=== PATIENT | male | born 1975 | race Caucasian/White ===

== ENCOUNTER 2020-04-07 05:19 | Emergency (ER) | payer OTHER ==
--- OUTSIDE RECORDS SUMMARY | 2020-04-07 05:41 | XMS ---
:1975 Author Organization [facility] Care Team Providers Name Role Phone EMMETT GUERRA MD Unavailable EMMETT GUERRA MD Unavailable EMMETT GUERRA MD Unavailable SHANNON GUERRA MDY Unavailable DO Demetrio GEMINI Unavailable DO Demetrio GEMINI Unavailable CHARLEE SANDERS MD Unavailable CHARLEE SANDERS MD Unavailable VAISHALI LAYTON MD Unavailable VAISHALI LAYTON MD Unavailable VAISHALI LAYTON MD Unavailable IVONNE CASTANON Unavailable AGCRISTY MATAYNE Unavailable READRIAN JENKINS LISSA Unavailable RE JENKINS LISSA Unavailable ALEISHA UP MD Unavailable Unavailable UP, ALEISHA MD Unavailable Unavailable UP, ALEISHA MD Unavailable Unavailable UP, ALEISHA MD Unavailable Unavailable UP, ALEISHA MD Unavailable Unavailable UP, ALEISHA MD Unavailable Unavailable LISSA BLAKE Unavailable Unavailable Re-disclosure Warning The records that you are about to access may contain information from federally- assisted alcohol or drug abuse programs. If such information is present, then the following federally mandated warning applies: This information has been disclosed to you from records protected by federal confidentiality rules (42 CFR part 2). The federal rules prohibit you from making any further disclosure of this information unless further disclosure is expressly permitted by the written consent of the person to whom it pertains or as otherwise permitted by 42 CFR part 2. A general authorization for the release of medical or other information is NOT sufficient for this purpose. The Federal rules restrict any use of the information to criminally investigate or prosecute any alcohol or drug abuse patient.The records that you are about to access may contain highly sensitive health information, the redisclosure of which is protected by Article 27-F of the [facility] Public Health law. If you continue you may haveaccess to information: Regarding HIV / AIDS; Provided by facilities licensed or operated by the [facility] Office of Mental Health; or Provided by the [facility] Office for People With Developmental Disabilities. If such information is present, then the following [facility] mandated warning applies: This information has been disclosed to you from confidential records which are protected by state law. State law prohibits you from making any further disclosure of this information without the specific written consent of the person to whom it pertains, or as otherwise permitted by law. Any unauthorized further disclosure in violation of state law may result in a fine or alf sentence or both. A general authorization for the release of medical or other information is NOT sufficient authorization for further disclosure. Allergies and Adverse Reactions Type Description Substance Reaction Status Data Source(s ) Allergy to No Known Allergies No known GREENW AY ([facility] substance allergies [facility] ([facility]) [facility] ) Allergy to No Known Allergies No known GREENW AY ([facility] substance allergies [facility] ([facility]) [facility] ) Allergy to No Known Allergies No known GREENW AY ([facility] substance allergies [facility] ([facility]) [facility] ) Allergy to No Known Allergies No known GREENW AY ([facility] substance allergies 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</td><td>Yo 11:59:00 nkers [facility]</td><td >07/12/2019</t d><td></td> Outpatient<td Attender: Jessee 06/22/20 DENISA (M ount ID="encounterT [place] [address] [facility] [place] ID1">*OUTREACH AM [facility] Health [facility] ter) *</td><td>GIFT 06/22/20 Y RE 19 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</td><td>Yo 11:59:00 nkers [facility]</td><td >06/22/2019</t d><td></td> Outpatient Attender: Radha 06/21/[address] RE 03:11:00 GIFTYAdmitter PM EST : LISSA RE GIFTYReferrer : LISSA RE LISSA Outpatient<td Attender: Jessee 06/21/20 DENISA (M ount ID="encounterT [place] [address] [facility] [place] [facility] 02:30[facility]00 [facility]">E[facility]</td>< EST - Health Barbara ter) td>CHARLEE 06/21/20 MARILYN Stewart MD</td><td>Yon 01:21:32 [facility]</td><td >06/21/2019</t d><td></td> Outpatient<td Attender: Jessee 06/21/20 Chest DENISA (M ount ID="encounterT [facility] 19 PainBronchitisChest V cassie ypeDescription [facility] Health Center 01:30:00 PainBronchitisCh [facility] ID3">OFFICE PM EST - PainBronchitis Health nter) VISIT</td><td> 06/21/[address]</td><td>Yo 02:52:34 nkers PM [facility] Center</td><td >06/21/2019</t d><td><content ID="encounterD iagnosisID3-0" >Bronchitis</c ontent>, <content ID="encounterD iagnosisID3-1" >Chest Pain</content> </td> Chest Pain Bronchitis Chest Pain Bronchitis Chest Pain Bronchitis Outpatient<td Attender: Jessee 04/19/2019 DENISA ID="encounterTypeDescriptionID4">WALKINS</td><td>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 Center 019 Health 03:37:29 PM Center) EDT Outpatient<td ID="encounterTypeDescriptionID5">OFFICE Attender: Jessee 02/17/2017 DENISA VISIT</td><td>[facility]</td><td>[facility] 06:45:00 PM ([facility] EDT - [place]</td><td>02/17/2017</td><td></td> 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 Center 017 Health 07:20:47 PM Center) EDT Outpatient<td ID="encounterTypeDescriptionID6">OFFICE Attender: Jessee 01/13/2017 DENISA VISIT</td><td>VAISHALI LAYTON MD</td><td>[facility] 09:15:00 AM ([facility]</td><td>01/13/2017</td><td></td> CALIN SUAREZ [facility] EDT [facility] 01/13/2017 Health 10:43:25 AM Center) EDT Outpatient<td ID="encounterTypeDescriptionID7">[Patient Attender: 12/03/2016 DENISA Encounter]</td><td>EMMETT GUERRA MD</td><td> EMMETT 02:5 1:00 PM ([place] </td><td>12/03/2016</td><td></td> MARI SUAREZ EDT - [facility] 12/03/2016 Health 11:59:00 PM Center) EDT Outpatient<td ID="encounterTypeDescriptionID8">OFFICE Attender: Jessee 12/02/2016 DENISA VISIT</td><td>EMMETT GUERRA MD</td><td>General acute hospital 09:45:00 AM ([facility]</td><td>12/02/2016</td><td></td> MARI SUAREZ [facility] EDT [facility] 12/02/2016 Health 10:59:01 AM Center) EDT Outpatient<td ID="encounterTypeDescriptionID9">[Patient Attender: 11/25/2016 DENISA Encounter]</td><td>VAISHALI LAYTON MD</td><td> VAISHALI 04: 51:00 PM ([place] </td><td>11/25/2016</td><td></td> CALIN SUAREZ EDT - Neighborhood 11/25/2016 Health 11:59:00 PM Center) EDT Outpatient<td ID="[id number]">[facility] 11/18/2016 [place] EKG</td><td> </td><td>[facility] 03:30:00 PM ([facility] EDT [facility]</td><td>11/18/2016</td><td></td> Center 05/04/2 017 Health 11:59:00 PM Center) EDT Outpatient<td Attender: Jessee 11/18/2016 Shirin [place] ID="[id number]">COMPLETE PHYSICAL VAISHALI [facility] 02:00:00 PM a ([place] EXAM</td><td>VAISHALI LAYTON MD</td><td>[facility] CALIN SUAREZ a [facility] EDT - s [facility]</td><td>11/18/2016</td><td><content Center 11/18/2016 t Health ID="[id number]">Questionnaires Phq-9 11:59:00 PM r [place]) Quick Depression Assessment Panel</content>, <content EDT i ID="[id number]">Atypical Chest t Pain</content>, <content i ID="efsgsbcteFcvvmqqgwNO69-4">Routine History and s Physical Adult (18 - 64 Yrs)</content>, <content S ID="ghxcmlthnVrucracruWQ14-5">Scrotum c Disorders</content>, <content r ID="oakxouekzAvsdmtqeiHV52-6">Gastritis</content></td> o t u m D i s o r d e r s R o u t i n e H i s t o r y a n d P h y s i c a l A d u l t ( 1 8 - 6 4 Y r s ) A t y p i c a l C h e s t P a i n Q u e s t i o n n a i r e s P h q - 9 Q u i c k D e p r e s s i o n A s s e s s m e n t P a n e l G a s t r i t i s S c r o t u m D i s o r d e r s R o u t i n e H i s t o r y a n d P h y s i c a l A d u l t ( 1 8 - 6 4 Y r s ) A t y p i c a l C h e s t P a i n Q u e s t i o n n a i r e s P h q - 9 Q u i c k D e p r e s s i o n A s s e s s m e n t P a n e l G a s t r i t i s S c r o t u m D i s o r d e r s R o u t i n e H i s t o r y a n d P h y s i c a l A d u l t ( 1 8 - 6 4 Y r s ) A t y p i c a l C h e s t P a i n Q u e s t i o n n a i r e s P h q - 9 Q u i c k D e p r e s s i o n A s s e s s m e n t P a n e l G a s t r i t i s S c r o t u m D i s o r d e r s R o u t i n e H i s t o r y a n d P h y s i c a l A d u l t ( 1 8 - 6 4 Y r s ) A t y p i c a l C h e s t P a i n Q u e s t i o n n a i r e s P h q - 9 Q u i c k D e p r e s s i o n A s s e s s m e n t P a n e l Gastritis Scrotum Disorders Routine History and Physical Adult (18 - 64 Yrs) Atypical Chest Pain Questionnaires Phq-9 Quick Depression As sessment Panel Gastritis Scrotum Disorders Routine History and Physical Adult (18 - 64 Yrs) Atypical Chest Pain Questionnaires Phq-9 Quick Depression As sessment Panel Gastritis Scrotum Disorders Routine History and Physical Adult (18 - 64 Yrs) Atypical Chest Pain Questionnaires Phq-9 Quick Depression As sessment Panel Gastritis Scrotum Disorders Routine History and Physical Adult (18 - 64 Yrs) Atypical Chest Pain Questionnaires Phq-9 Quick Depression As sessment Panel Outpatient<td Attender: Jessee 11/13/2015 [place] ID="[id number]">*No [facility] 11:09:00 AM ([place] Show*</td><[facility] </td><td>[facility] 11/13/2015 [facility]</td><td>11/13/2015</td><td></td> 11:59:0 0 PM Center) EDT Outpatient<td [facility] 11/24/2011 DENISA ID="[id number]">DEEPCAMI Brennan 02:45: 00 PM (Ai Hi</td><[facility]> [facility] </td><td>[facility] 11/24/2011 [facility] 11:59:00 PM Center) Center</td><td>11/24/2011</td><td></td> EDT Outpatient<td Attender: 11/24/2011 DENISA ID="[id number]">[Latrice SINGLETARY 12:23: 00 PM ([place] nt Encounter]</td><td>Demetrio Calvin DO EDT [facility] DO</td><td> 11/24/2011 [facility] </td><td>11/24/2011</td><td></td> 11:59:00 PM Center) EDT Outpatient<td Attender: Jessee 11/24/2011 DENISA ID="[id number]">[facility] 12:15: 00 PM (Ai [place] </td><td>EMMETT GUERRA MD</td><td>[facility] 11/24/2011 Health Center</td><td>11/24/2011</td><td></td> 01:42:5 6 PM Center) EDT Outpatient<td Attender: Jessee 04/15/2011 DENISA ID="[id number]">Follow GEMINI Deleon 01:30: 00 PM ([place] </td><td>Demetrio Calvin DO [facility] EDT [facility] DO</td><td>[facility] 04/15/2011 Health Center</td><td>04/15/2011</td><td></td> 11:59:0 0 PM Center) EDT Medications Medication Brand Start Product Dose Route Administrative Pharmacy St atus Indications Reaction Description Data Name Date Form Instructions Instructions Source(s) Amoxicillin Amoxic 12/05/ UNIT 1 complet Amoxic illin- DENISA 875 MG / illin- 2019 ed Pot ([place] Clavulanate Pot 12:00: Clavulanate Mika 125 MG Oral Clavul 00 AM Neigh [place] Tablet anate EST od Health Amoxicillin 875-12 Center ) -Pot 5MG Clavulanate Oral 875-125MG Tablet Oral Tablet Ventolin Ventol 06/21/ INHALATI active Ventol in HFA DENISA HFA 108 (90 in HFA 2019 ON ([place] Base)MCG/AC 108 12:00: DOSING Nikolay on T (90 00 AM UNIT [place]ighbor[place] Inhalation Base)M EST od Heal th Aerosol CG/ACT Center) Solution Inhala tion Aeroso l Soluti on Singulair Singul 06/21/ UNIT 1 active Singulair DENISA 10MG Oral air 2018 ([place] Tablet 10MG 12:00: Mika Oral 00 AM [place]ighbor[place] Tablet EST od Health Center) Omeprazole Omepra 02/17/ UNIT 1 complet Omepraz ole DENISA 20 MG zole 2016 ed ([place] Delayed 20MG 12:00: Mika Release Oral 00 AM [place]ighbor[place] Oral Tablet Tablet EDT od Hea lt Omeprazole [place] [facility]) 20MG Oral d Tablet Releas Delayed e Release Omeprazole Omepra 11/19/ UNIT 1 suspend Omepraz ole DENISA 20 MG zole 2016 ed ([place] Delayed 20 MG 12:00: Mika Release Capsul 00 AM Neighbor[place] o Oral e EDT od Health Capsule [place] [facility]) Omeprazole d 20 MG Releas Capsule e Delayed Release Insurance Providers Payer name Policy type / Policy ID Covered Covered green party's Policy Plan Coverage type green party ID relationship to Dan Information dan DOYLE [id number] ESSENTIAL PLAN 3 4 [place] Care Individual 0 Self 0 [place] Policy [place] Individual 0 Self 0 [place] Policy O DOYLE O [id number] 01 [id number] ESSENTIALS-CO MMERCIAL [place] Care Individual 0 Self 0 [place] Policy [place] Care Individual 0 Self 0 [place] Policy Juventino Vision [id number] S [id number] Essential Plan 3 4 Dental [id number] S [id number] DentaQuest EP 4 Doyle Care [id number] S [id number] HMO EP 4 [place] Care [id number] S [id number] [place] [id number] S [id number] 400 Family Planning MKD & EP 3 & 4 Only Juventino Vision [id number] S [id number] MKD Dental [id number] S [id number] 400 Dentaquest MKD Medicaid [id number] S [id number] Regular Clinic Visit [place] Care [id number] S [id number] [place] Medicaid Problems, Conditions, and Diagnoses Code Display Name Description Problem Type Effective Data Sour ce(s) Dates 530.81 Gerd Gerd Problem 04/19/2017 [place] (Moun t 12:00:00 AM [facility]) 530.81 Gerd Gerd Problem 04/19/2017 [place] (Moun t 12:00:00 AM [facility]) 530.81 Gerd Gerd Problem 04/19/2017 [place] (Moun t 12:00:00 AM [facility]) 530.81 Gerd Gerd Problem 04/19/2017 [place] (Moun t 12:00:00 AM [facility]) [id number] Disorder of scrotum Scrotum Problem 11/18/2016 [facility] ([place] (disorder) Disorders 12:00:00 AM [facility]) 74739129 Disorder of scrotum Scrotum Problem 11/18/2016 [facility] ([place] (disorder) Disorders 12:00:00 AM [facility]) 89376514 Disorder of scrotum Scrotum Problem 11/18/2016 [facility] ([place] (disorder) Disorders 12:00:00 AM [facility]) 00719648 Disorder of scrotum Scrotum Problem 11/18/2016 [facility] ([place] (disorder) Disorders 12:00:00 AM [facility]) 919858251 Shoulder strain Shoulder Strain Problem 11/24/2011 MACK ADORNO ([place] (disorder) 12:00:00 AM [facility]) [id number] Shoulder strain Shoulder Strain Problem 11/24/2011 [place] [place] ([place] (disorder) 12:00:00 AM [facility]) [id number] Shoulder strain Shoulder Strain Problem 11/24/2011 MACK ADORNO ([facility] (disorder) 12:00:00 AM [facility]) [id number] Shoulder strain Shoulder Strain Problem 11/24/2011 MACK ADORNO ([facility] (disorder) 12:00:00 AM [facility]) J40 Bronchitis, not BRONCHITIS, NOT Diagnosis 06/21/2019 Prashant Mendoza specified as acute SPECIFIED 03:11:00 PM [facility] or chronic ACUTE OR EST CHRONIC R82.79 Other abnormal Other abnormal Diagnosis 09/19/2018 [facility] AY ([facility] findings on findings on 07:37:28 PM [place] microbiological microbiolog [facility] examination of examination of [facility]) urine urine K29.70 Gastritis, Gastritis, Diagnosis 09/19/2018 [place] (Moun t unspecified, unspecified, 07:37:28 PM [place] without bleeding without [facility] bleeding [facility]) R07.9 Chest pain, Chest pain, Diagnosis 09/19/2018 [place] (Mo unt unspecified unspecified 07:37:[address] [facility]) Surgeries/Procedures Procedure Description Date Indications Data Source(s) EKG EKG 06/21/2019 [place] ([facility] 12:00:00 AM [facility]) VITALS ONLY TAKEN VITALS ONLY TAKEN BY 04/19/2019 JOSÉ MIGUEL BORJA ([facility] BY NSG OR BOOM SUPERVISOR NSG OR BOOM SUPERVISOR 12:00:00 AM [facility]) Advance healthcare Advance healthcare 02/17/2017 LUANNE CASTREJON ([facility] directive not on directive not on 12:00:00 AM [facility]) No recent change in No recent change in 01/13/2017 Shirin HUNTER ([facility] medical history medical history 12:00:00 [facility]) No past medical No past medical 12/02/2016 [place] ([facility] history reported history reported 12:00:00 AM [facility]) History of No History of No 12/02/2016 [place] ([place] nt carotid bruits carotid bruits 12:00:00 AM [facility]) History of Eyes: History of Eyes: 12/02/2016 SHARMIN Y ([facility] normal normal 12:00:[address] [facility]) No history of No history of 12/02/2016 DENISA ([place] surgery surgery 12:00:[address] [facility]) Results ID Date Data Source [id number] 07/12/2019 09:47:17 AM EST GREENWA Y ([place] [id number] [facility]) Name Value Range Interpretation Description Data Source(s ) Supporting Code Document(s ) No Results No Results No Results DENISA ([facility] Recorded For [facility]) ID Date Data Source [id number] 06/22/2019 08:52:39 AM EST GREENWA Y ([place] [id number] [facility]) Name Value Range Interpretation Description Data Source(s ) Supporting Code Document(s ) No Results No Results No Results DENISA ([facility] Recorded For [facility]) ID Date Data Source [id number] 06/21/2019 02:26:05 PM EST GREENWA Y ([place] [id number] [facility]) Name Value Range Interpretation Description Data Source(s ) Supporting Code Document(s ) No Results No Results No Results DENISA ([facility] Recorded For [facility]) ID Date Data Source [id number] 04/19/2019 04:07:52 PM EDT GREENWA Y ([place] [id number] [facility]) Name Value Range Interpretation Description Data Source(s ) Supporting Code Document(s ) No Results No Results No Results DENISA ([facility] Recorded For [facility]) Procedure Social History Code Duration Value Status Description Data Source(s ) Smoking 12/02/2016 Never smoked completed Never smoked DENISA ( [facility] 11:24:35 AM tobacco (finding) tobacco (finding) [facility]) Assertion Occupation completed Occupation DENISA ([place] history (finding) history (finding) [facility]) Assertion Finding relating completed Finding relating GR EENWAY ([facility] to drug misuse to drug misuse [place] behavior behavior Neighborhood (finding) (finding) Health [place]) Assertion Physical handicap completed Physical handicap DENISA ([facility] (finding) (finding) [facility]) Assertion Caffeine user completed Caffeine user DENISA ([facility] (finding) (finding) [facility]) Assertion sexual history completed DENISA ( [facility]) Assertion Finding of completed Finding of DENISA ([place] functional functional [place] performance and performance and [facility] activity activity [facility]) (finding) (finding) Assertion social history completed DENISA ( [facility]) Assertion Finding of completed Finding of DENISA ([place] activity of daily activity of daily Mika living (finding) living (finding) [facility]) Assertion Exercise history completed Exercise history GR EENWAY ([facility] finding (finding) finding (finding) [facility]) Assertion Current drinker completed Current drinker MACK ADORNO ([facility] of alcohol of alcohol [place] (finding) (finding) [facility]) Smoking Unknown if ever completed Unknown if ever Prashant Mendoza smoked smoked Medical Center Vital Signs ID Date Data Source UNK Name Value Range Interpretation Code Description Data Source(s) PhenX - pain, 0 0 DENISA ([facility] abdominal - type [facility]) protocol Follow up and he still have cough Body surface area Derived from 1.94 m2 1.94 m2 [place] ([facility]) Follow up and he still have cough Body mass index (BMI) 25.4 kg/m2 25.4 kg/m2 GRE ENWAY ([place] [Ratio] [facility] Follow up and he still have cough Body weight 172 [lb_av] 172 [lb_av] DENISA ([facility]) Follow up and he still have cough Body height 69 [in_us] 69 [in_us] DENISA ([place] [facility]) Follow up and he still have cough Body temperature 98.1 [degF] 98.1 [degF] [facility] ([facility]) Follow up and he still have cough Heart rate 59 /min 59 /min DENISA (Moun t [facility]) Follow up and he still have cough Diastolic blood pressure 87 mm[Hg] 87 mm[Hg] DENISA ([facility]) Follow up and he still have cough Systolic blood pressure 130 mm[Hg] 130 mm[Hg] [facility]) Follow up and he still have cough PhenX - pain, abdominal - type and 5 5 [place] ([facility] protocol [facility]) Pt is here for regular check and also 3 month with chest pain, and cough for same time. Body surface area Derived from 1.95 m2 1.95 m2 [place] ([facility]) Pt is here for regular check and also 3 month with chest pain, and cough for same time. Body mass index (BMI) 25.8 kg/m2 25.8 kg/m2 GRE ENWAY ([place] [Ratio[facility] Pt is here for regular check and also 3 month with chest pain, and cough for same time. Body weight 175 [lb_av] 175 [lb_av] [place] ( ount [facility]) Pt is here for regular check and also 3 month with chest pain, and cough for same time. Body height 69 [in_us] 69 [in_us] [place] ([place] [facility]) Pt is here for regular check and also 3 month with chest pain, and cough for same time. Body temperature 97.5 [degF] 97.5 [degF] [facility] ([facility]) Pt is here for regular check and also 3 month with chest pain, and cough for same time. Heart rate 74 /min 74 /min [place] ([facility]) Pt is here for regular check and also 3 month with chest pain, and cough for same time. Diastolic blood pressure 77 mm[Hg] 77 mm[Hg] [place] ([facility]) Pt is here for regular check and also 3 month with chest pain, and cough for same time. Systolic blood pressure 120 mm[Hg] 120 mm[Hg] [facility] Pt is here for regular check and also 3 month with chest pain, and cough for same time. Inhaled oxygen concentration 21 % 21 % [place] ([facility]) pt , is here for follow up , complaint a bout cought and short breath X2 weeks Inhaled oxygen flow rate 0 L/min 0 L/min [place] ([facility]) pt , is here for follow up , complaint a bout cought and short breath X2 weeks Oxygen saturation in Arterial blood 97 % 97 % DENISA ([facility] by Pulse oximetry [facility]) pt , is here for follow up , complaint a bout cought and short breath X2 weeks PhenX - pain, abdominal - type and 8 8 DENISA ([facility] intensity protocol [facility]) pt , is here for follow up , complaint a bout cought and short breath X2 weeks Body surface area Derived from 1.92 m2 1.92 m2 DENISA ([facility]) pt , is here for follow up , complaint a bout cought and short breath X2 weeks Body mass index (BMI) 24.7 kg/m2 24.7 kg/m2 LUANNE CASTREJON ([place] [facility] , is here for follow up , complaint a bout cought and short breath X2 weeks Body weight 167.6 [lb_av] 167.6 [lb_av] SHARMIN Y ([facility]) pt , is here for follow up , complaint a bout cought and short breath X2 weeks Body height 69 [in_us] 69 [in_us] DENISA ([facility]) pt , is here for follow up , complaint a bout cought and short breath X2 weeks Body temperature 98.2 [degF] 98.2 [degF] [facility] ([facility]) pt , is here for follow up , complaint a bout cought and short breath X2 weeks Respiratory rate 18 /min 18 /min DENISA ([facility]) pt , is here for follow up , complaint a bout cought and short breath X2 weeks Heart rate rhythm 1 1 IGORVT Y ([facility]) pt , is here for follow up , complaint a bout cought and short breath X2 weeks Heart rate 71 /min 71 /min [place] ([facility]) pt , is here for follow up , complaint a bout cought and short breath X2 weeks Diastolic blood pressure 78 mm[Hg] 78 mm[Hg] DENISA ([facility]) pt , is here for follow up , complaint a bout cought and short breath X2 weeks Systolic blood pressure 120 mm[Hg] 120 mm[Hg] G REEKYREE ([facility]) pt , is here for follow up , complaint a bout cought and short breath X2 weeks Patient Treatment Plan of Care Planned Activity Planned Date Details Description Data Source (s) Amoxicillin 875 MG / 06/21/2019 12:00:00 DENISA ([place] Clavulanate 125 MG Oral AM EST [facility]) Singulair 10MG Oral 06/21/2019 12:00:00 G REENDONAVON ([place] Tablet AM EST [facility]) Ventolin HFA 108 (90 06/21/2019 12:00:00 DENISA ([facility])MCG/ACT Inhalation AM EST [facility] Aerosol Solution [place]) Omeprazole 20 MG 02/17/2017 12:00:00 MACK ADORNO ([place] Delayed Release Oral AM EDT [facility] Tablet [place]) Omeprazole 20 MG 11/19/2016 12:00:00 MACK ADORNO ([place] Delayed Release Oral AM EDT [facility] Capsule [place])
[2020-04-07 06:18] VITALS: BP 146/97; PULSE 88; TEMP 98.1; BMI 21.4
--- NOTE | 2020-04-07 06:24 | PDOC ---
History of Present Illness - General Chief Complaint: Bite Stated Complaint: NUMBNESS TO HAND Time Seen by Provider: 04/07/20 06:24 History Source: Patient Exam Limitations: No Limitations - History of Present Illness Initial Comments: 04/07/20 06:33 bee sting to left ring finger while taking out trash yesterday progressive swelling of finger; gold ring now stuck. Increasing pain of finger. no f/c, cp/sob, n/v/d. No numbness, tingling, weakness. NKDA Past History - Medical History Allergies/Adverse Reactions: Allergies Allergy/AdvReac Type Severity Reaction Status Date / Time No Known Allergies Allergy Verified 04/07/20 05:38 Home Medications: Ambulatory Orders Cephalexin Monohydrate [Keflex -] 500 mg PO BID #10 capsule 04/07/20 - Psycho-Social/Smoking History Smoking History: Never smoked Information on smoking cessation initiated: No - Substance Abuse Hx (Audit-C & DAST Scrn) How often the patient has a drink containing alcohol: Never Score: In Men: 4 or > Positive; In Women: 3 or > Positive: 0 Screen Result (Pos requires Nsg. Audit-10AR): Negative In the last yr the pt used illegal drug/Rx for NonMed reason: No Score: Yes response is considered Positive: 0 Screen Result (Positive result requires Nsg. DAST-10): Negative Review of Systems - Review of Systems Comments:: 04/08/20 07:58 CONSTITUTIONAL: Denies F / C HEENT: Denies headache, sore throat, rhinorrhea, difficulty breathing or swallowing RESP: Denies SOB, cough, orthopnea, ASTORGA CARD: Denies chest pain, palpitations GI: Denies N / V / D, abdominal pain, bloody stool, inability to tolerate PO : Denies dysuria, hematuria, frequency NEURO: Denies numbness, tingling, weakness MSK: Denies back pain SKIN: + bee sting and ring finger swelling; ring stuck *Physical Exam - Vital Signs Last Vital Signs Temp Pulse Resp BP Pulse Ox 98.1 F 88 17 146/97 99 04/07/20 05:35 04/07/20 05:35 04/07/20 05:35 04/07/20 05:35 04/07/20 05:35 - Physical Exam 04/08/20 07:58 GEN: Well appearing, NAD, AAOx3. HEENT: NC/AT, EOMI. No facial asymmetry. Normal voice. Supple neck w/ FROM. LUNG: nonlabored breathing w/o wheezing GI: ndnt MSK: left ring finger swelling with gold ring entrapped proximal to swelling SKIN: Warm, dry, no rashes appreciated. PSYCH: Normal mood and affect. NEURO: Moving all extremities well. Procedures - Additional Procedures Progress: 04/07/20 06:40 ring cutter used to remove ring from left ring finger. patient tolerated procedure well. no immediate complications. Medical Decision Making - Medical Decision Making 04/08/20 07:58 44M w/ ring stuck after bee sting to the left ring finger. painful but neuro intact. airway intact. ring cutter keflex rx dc home w/ return precautions Discharge - Discharge Information Problems reviewed: Yes Clinical Impression/Diagnosis: Tight ring on finger, Bee sting Finger, insect bite, nonvenomous, without mention of infection Qualifiers: Encounter type: initial encounter Qualified Code(s): S60.469A - Insect bite (nonvenomous) of unspecified finger, initial encounter Condition: Fair Disposition: HOME - Admission No - Additional Discharge Information Prescriptions: Cephalexin Monohydrate [Keflex -] 500 mg PO BID #10 capsule - Follow up/Referral - Patient Discharge Instructions Patient Printed Discharge Instructions: DI for Cellulitis -- Adult, DI for Insect Bites and Stings Additional Instructions: We sent antibiotics to your pharmacy; please pick it up and take as prescribed. Use tylenol or ibuprofen as directed by the label for pain. Use benadryl 25mg every 6 hours as needed for itching. Follow up with your primary care doctor in the next 10 days. Return to the Emergency Department if you experience new or worsening symptoms, including but not limited to: - shortness of breath, difficulty breathing - vomiting, diarrhea - chest pain - anything that concerns you - Post Discharge Activity
--- NOTE | 2020-04-07 06:32 | PDOC ---
Attending Attestation - Resident Resident Name: NaldoIgnacio - ED Attending Attestation I have performed the following: I have examined & evaluated the patient, The case was reviewed & discussed with the resident, I agree w/resident's findings & plan - HPI HPI: 04/07/20 06:26 Pt comes with bee sting to his ring finger - Physicial Exam PE: 04/07/20 06:28 agree with resident exam - Medical Decision Making 04/07/20 06:28 Pt's ring removed with ring cutter Pt bacitracin and ice applied Pt will be sent home with 5 days of keflex BID as he has abrasions and bite to his left ring finger 04/07/20 06:32 Discharge - Discharge Information Problems reviewed: Yes Clinical Impression/Diagnosis: Tight ring on finger Finger, insect bite, nonvenomous, without mention of infection Qualifiers: Encounter type: initial encounter Qualified Code(s): S60.469A - Insect bite (nonvenomous) of unspecified finger, initial encounter; W57.XXXA - Bitten or stung by nonvenomous insect and other nonvenomous arthropods, initial encounter Condition: Fair Disposition: HOME - Follow up/Referral - Patient Discharge Instructions Patient Printed Discharge Instructions: DI for Insect Bites and Stings - Post Discharge Activity
== END 2020-04-07 06:44 | disposition home or self-care (01) ==
LOC: JER 05:19
DX: S60.469A Insect bite (nonvenomous) of unspecified finger, initial encounter (principal)
CPT/HCPCS: 99281-25